=== PATIENT | male | born 1965 | race Caucasian/White ===

== ENCOUNTER 2021-03-21 06:27 | Inpatient (IN) | payer OTHER ==
[~2021-03-21] VITALS: Ht 182.9 cm; Wt 83.6 kg
[~2021-03-21 06:27] MED LIST: CIPRO500 MG PO; METRONIDAZOLE500 MG PO; NEXIUM40 MG PO; NORCO 5-325 TA1 EACH PO; ZOFRAN4 MG PO
[2021-03-21 07:07] LABS: BASOPHIL 0.2 % (0-2); EOSINOPHIL 0 % (0-5); HCT 52.2 % (42.0-52.0); HGB 17.7 g/dl (13.2-18.0); LYMPHOCYTE 14.7 % (15-48); MCH 27.4 pg (25.0-31.0); MCHC 33.9 g/dL (32.0-36.0); MCV 80.7 fL (78.0-100.0); MONOCYTE 5.8 % (0-12); MPV 10.6 fL (6.0-9.5); NEUTROPHIL 78.7 % (41-80); NRBC 0; PLT 222 K/uL (150-400); RBC 6.47 M/uL (4.70-6.00); RDW 12.4 % (11.5-14.0); WBC 4.6 K/uL (4.0-10.5)
[2021-03-21 07:45] LABS: LACTIC ACID 1.2 mmol/L (0.4-1.9)
[2021-03-21 07:53] LABS: ALBUMIN 3.4 g/dL (3.4-5.0); BILIRUBIN - TOTAL 0.7 mg/dL (0.2-1.0); BUN/CREAT RATIO (CALC) 39.5 RATIO; C-REACTIVE PROTEIN 7.7 mg/dL (<=0.90); CREATININE 0.76 mg/dL (0.67-1.17); GLOBULIN (CALCULATION) 3.7 g/dL; POTASSIUM 3.8 mmol/L (3.5-5.1); TOTAL PROTEIN 7.1 g/dL (6.4-8.2)
[2021-03-22 09:41] LABS: BASOPHIL 0 % (0-2); EOSINOPHIL 0 % (0-5); HGB 14.8 g/dl (13.2-18.0); LYMPHOCYTE 17.5 % (15-48); MCH 28.1 pg (25.0-31.0); MCHC 33.6 g/dL (32.0-36.0); MCV 83.7 fL (78.0-100.0); MONOCYTE 4.3 % (0-12); MPV 10.3 fL (6.0-9.5); NEUTROPHIL 77.5 % (41-80); NRBC 0; PLT 209 K/uL (150-400); RBC 5.26 M/uL (4.70-6.00); RDW 12.8 % (11.5-14.0); WBC 4.4 K/uL (4.0-10.5)
[2021-03-22 10:41] LABS: ALBUMIN 2.7 g/dL (3.4-5.0); BILIRUBIN - TOTAL 0.4 mg/dL (0.2-1.0); BUN/CREAT RATIO (CALC) 33.8 RATIO; CREATININE 0.68 mg/dL (0.67-1.17); GLOBULIN (CALCULATION) 2.9 g/dL; MAGNESIUM 1.9 mg/dL (1.8-2.4); PHOSPHORUS 1.4 mg/dL (2.6-4.7); POTASSIUM 3.9 mmol/L (3.5-5.1); TOTAL PROTEIN 5.6 g/dL (6.4-8.2)
[2021-03-23 06:54] LABS: BASOPHIL 0.3 % (0-2); EOSINOPHIL 0 % (0-5); HCT 42.3 % (42.0-52.0); HGB 14.2 g/dl (13.2-18.0); MCH 28.1 pg (25.0-31.0); MCHC 33.6 g/dL (32.0-36.0); MCV 83.6 fL (78.0-100.0); MONOCYTE 6.4 % (0-12); MPV 10.1 fL (6.0-9.5); NEUTROPHIL 77.4 % (41-80); NRBC 0; PLT 239 K/uL (150-400); RBC 5.06 M/uL (4.70-6.00); WBC 3.9 K/uL (4.0-10.5)
[2021-03-23 07:00] LABS: LYMPHOCYTE 15.1 % (15-48)
[2021-03-23 07:24] LABS: ALBUMIN 2.5 g/dL (3.4-5.0); BILIRUBIN - TOTAL 0.4 mg/dL (0.2-1.0); BUN/CREAT RATIO (CALC) 22.6 RATIO; C-REACTIVE PROTEIN 2.5 mg/dL (<=0.90); CREATININE 0.62 mg/dL (0.67-1.17); GLOBULIN (CALCULATION) 2.4 g/dL; PHOSPHORUS 2.7 mg/dL (2.6-4.7); POTASSIUM 4.2 mmol/L (3.5-5.1); TOTAL PROTEIN 4.9 g/dL (6.4-8.2)
[2021-03-26 07:06] LABS: BUN/CREAT RATIO (CALC) 33.8 RATIO; CREATININE 0.65 mg/dL (0.67-1.17); POTASSIUM 4.1 mmol/L (3.5-5.1)
[2021-03-27] MEDS ORDERED: VENTOLIN HFA IN18 GM INH (16:48)
[2021-03-27] MEDS ORDERED: DECADRON6 MG PO (16:48)
[2021-03-27] MEDS ORDERED: ATIVAN1 MG PO (17:06)
== END 2021-03-27 17:40 | disposition home or self-care (01) | DRG 177 ==
LOC: FER 06:27 → FMS 23:14
PROVIDERS: Emergency Medicine; Nurse Practitioner; ADMIT Internal Medicine
PROC: XW033E5 Introduction of Remdesivir Anti-infective into Peripheral Vein, Percutaneous Approach, New Technology Group 5 (ICD-10-PCS; principal; 2021-03-21)
PROC: 8E0ZXY6 Isolation (ICD-10-PCS; 2021-03-21)
PROC: XW0DXM6 Introduction of Baricitinib into Mouth and Pharynx, External Approach, New Technology Group 6 (ICD-10-PCS; 2021-03-23)
DX: U07.1 COVID-19 (principal); J12.82 Pneumonia due to coronavirus disease 2019; J96.01 Acute respiratory failure with hypoxia; J43.2 Centrilobular emphysema; I71.2 Thoracic aortic aneurysm, without rupture; K21.9 Gastro-esophageal reflux disease without esophagitis; Z96.692 Finger-joint replacement of left hand; F41.1 Generalized anxiety disorder; Z98.890 Other specified postprocedural states; Z87.891 Personal history of nicotine dependence
CPT/HCPCS: 36415; 36600; 71045; 71275; 80048; 80053; 82728; 82803; 83605; 83615; 83735; 83880; 84100; 84145; 84484; 85025; 85379; 86140; 87040; 94010; 94640; 94664; 94760; 94762; C9399; J1100; J1650; J1885; J2405; J3475; J3480; J7040; J7050; J8540; Q9967; U0002

== ENCOUNTER 2021-11-13 19:31 | Day surgery (SDCO) | payer OTHER ==
[~2021-11-13] VITALS: Ht 182.9 cm; Wt 91.0 kg
[~2021-11-13 19:31] MED LIST changes: +ATIVAN1 MG PO; +DECADRON6 MG PO; +VENTOLIN HFA IN18 GM INH
[2021-11-13 20:21] LABS: BASOPHIL 0.4 % (0-2); EOSINOPHIL 1.5 % (0-5); HCT 46.1 % (42.0-52.0); HGB 15.7 g/dl (13.2-18.0); LYMPHOCYTE 13.7 % (15-48); MCH 28.6 pg (25.0-31.0); MCHC 34.1 g/dL (32.0-36.0); MONOCYTE 10.8 % (0-12); MPV 10.9 fL (6.0-9.5); NRBC 0; PLT 217 K/uL (150-400); RBC 5.49 M/uL (4.70-6.00); RDW 13.6 % (11.5-14.0); WBC 10.9 K/uL (4.0-10.5)
[2021-11-13 20:28] LABS: BILIRUBIN 1+ mg/dL (NEGATIVE); BLOOD NEGATIVE Ery/uL (NEGATIVE); CLARITY CLEAR (CLEAR); COLOR YELLOW (YELLOW); GLUCOSE (U) NORMAL (NORMAL); LEUKOCYTES NEGATIVE Leu/uL (NEGATIVE); NITRITE NEGATIVE (NEGATIVE); PROTEIN TRACE (LOW) mg/dL (NEGATIVE); SPECIFIC GRAVITY 1.025 (1.001-1.030)
[2021-11-13 20:37] LABS: URINARY RBC RARE; URINARY WBC RARE
[2021-11-13 21:02] LABS: ALBUMIN 3.6 g/dL (3.4-5.0); BILIRUBIN - TOTAL 0.7 mg/dL (0.2-1.0); BUN/CREAT RATIO (CALC) 22.1 RATIO; CREATININE 0.86 mg/dL (0.67-1.17); GLOBULIN (CALCULATION) 3.7 g/dL; TOTAL PROTEIN 7.3 g/dL (6.4-8.2)
[2021-11-13 21:03] LABS: POTASSIUM 3.6 mmol/L (3.5-5.1)
[2021-11-13 23:44] LABS: LACTIC ACID 0.8 mmol/L (0.4-1.9)
[2021-11-14] MEDS ORDERED: HYOSCYAMINE0.375 MG PO (01:02)
[2021-11-14] MEDS ORDERED: TRELEGY ELLIPT1 EACH PO (01:03)
[2021-11-14] MEDS ORDERED: PRIMIDONE250 MG PO (01:03)
[2021-11-14] MEDS ORDERED: OMEPRAZOLE40 MG PO (01:04)
[2021-11-14] MEDS ORDERED: ASPIRIN EC81 MG PO (01:05)
[2021-11-14 07:10] LABS: INR 1.14 (0.9-1.2); PROTHROMBIN TIME 14.3 SECONDS (11.9-13.9); PTT 39.2 SECONDS (24.9-34.6)
[2021-11-14 07:13] LABS: BASOPHIL 0.2 % (0-2); EOSINOPHIL 1.3 % (0-5); HCT 43.8 % (42.0-52.0); HGB 14.3 g/dl (13.2-18.0); LYMPHOCYTE 10.2 % (15-48); MCHC 32.6 g/dL (32.0-36.0); MCV 85.9 fL (78.0-100.0); MONOCYTE 12.1 % (0-12); MPV 11.4 fL (6.0-9.5); NEUTROPHIL 75.4 % (41-80); NRBC 0; PLT 186 K/uL (150-400); RDW 13.5 % (11.5-14.0); WBC 10.5 K/uL (4.0-10.5)
[2021-11-14 07:25] LABS: BUN 20 mg/dL (7-18); BUN/CREAT RATIO (CALC) 21.7 RATIO; C-REACTIVE PROTEIN >18.00 mg/dL (<=0.90); CHLORIDE 103 mmol/L (98-107); CO2 (BICARBONATE) 25 mmol/L (21-32); CREATININE 0.92 mg/dL (0.67-1.17); GLUCOSE 70 mg/dL (74-106); POTASSIUM 4.5 mmol/L (3.5-5.1)
--- NOTE | 2021-11-14 13:48 | NUR ---
11/14 Mr. Ho and his former sposue share a home together. He continues to work and reports to be able to meet his financial obligations. - Mr. Ho reports to drink 3 beers per night after work. He states that he drinks much less in Winter. Mr. Ho states that the alcohol use does not interfer with his relationships or work. - No interventions were provided.
[2021-11-15 06:33] LABS: BASOPHIL 0.4 % (0-2); EOSINOPHIL 4.2 % (0-5); HCT 39.1 % (42.0-52.0); HGB 13.5 g/dl (13.2-18.0); LYMPHOCYTE 20.1 % (15-48); MCH 28.8 pg (25.0-31.0); MCHC 34.5 g/dL (32.0-36.0); MCV 83.4 fL (78.0-100.0); MONOCYTE 10.4 % (0-12); NEUTROPHIL 64.3 % (41-80); NRBC 0; PLT 225 K/uL (150-400); RBC 4.69 M/uL (4.70-6.00); RDW 13.3 % (11.5-14.0); WBC 7.9 K/uL (4.0-10.5)
[2021-11-15 07:29] LABS: ALBUMIN 2.9 g/dL (3.4-5.0); ALKALINE PHOSHATASE 88 U/L (46-116); ALT 19 U/L (16-63); AST 14 U/L (15-37); BILIRUBIN - TOTAL 0.8 mg/dL (0.2-1.0); BUN 11 mg/dL (7-18); BUN/CREAT RATIO (CALC) 13.8 RATIO; CHLORIDE 100 mmol/L (98-107); CO2 (BICARBONATE) 24 mmol/L (21-32); GLOBULIN (CALCULATION) 3.2 g/dL; GLUCOSE 90 mg/dL (74-106); POTASSIUM 3.4 mmol/L (3.5-5.1); TOTAL PROTEIN 6.1 g/dL (6.4-8.2)
[2021-11-15 07:30] LABS: C-REACTIVE PROTEIN > 18.00 mg/dL (<=0.90)
[2021-11-16 09:57] LABS: BASOPHIL 0.6 % (0-2); EOSINOPHIL 8.3 % (0-5); HCT 43.9 % (42.0-52.0); LYMPHOCYTE 26.3 % (15-48); MCH 28.8 pg (25.0-31.0); MCHC 34.2 g/dL (32.0-36.0); MCV 84.3 fL (78.0-100.0); MONOCYTE 11.4 % (0-12); MPV 10.7 fL (6.0-9.5); NRBC 0; PLT 230 K/uL (150-400); RBC 5.21 M/uL (4.70-6.00); RDW 13.2 % (11.5-14.0); WBC 5.4 K/uL (4.0-10.5)
[2021-11-16] MEDS ORDERED: AMOX TR-K CLV1 EAC4 PO (14:59)
[2021-11-16] MEDS ORDERED: PERCOCET 10-321 EACH PO (14:59)
[2021-11-16] MEDS ORDERED: MIRALAX17 GM PO (15:01)
== END 2021-11-16 15:25 | disposition home or self-care (01) ==
LOC: FER 19:31 → FMS 23:08
PROVIDERS: Allergy & Immunology Allergy; Nurse Practitioner Acute Care; Nurse Practitioner Family; ADMIT Internal Medicine
DX: K57.20 Diverticulitis of large intestine with perforation and abscess without bleeding (principal); K21.9 Gastro-esophageal reflux disease without esophagitis; J98.11 Atelectasis; R25.1 Tremor, unspecified; J43.9 Emphysema, unspecified; I71.2 Thoracic aortic aneurysm, without rupture; Z87.19 Personal history of other diseases of the digestive system; Z98.890 Other specified postprocedural states; Z87.891 Personal history of nicotine dependence; Z86.16 Personal history of COVID-19; Z79.82 Long term (current) use of aspirin; Z79.899 Other long term (current) drug therapy; Z79.891 Long term (current) use of opiate analgesic
CPT/HCPCS: 36415; 80048; 80053; 81001; 83605; 84443; 85025; 85610; 85730; 86140; 87040; 94010; 94640; 94760; C9113; G0378; J1170; J1650; J1885; J2270; J2405; J2543; J7030; Q9967; U0002